=== PATIENT | female | born 1940 | race Caucasian/White ===

== ENCOUNTER 2016-12-30 07:04 | Inpatient (IN) | payer OTHER ==
[~2016-12-30] VITALS: Ht 152.4 cm; Wt 61.8 kg
[~2016-12-30 07:04] MED LIST: ALEVE220 MG PO; AMLODIPINE BESY10 MG PO; CARDIZEM CD,CA180 MG PO; CLONAZEPAM0.5 MG PO; CORTISONE INJECTION IM; COUMADIN2.5 MG PO; CYANOCOBALAM1000 MCG PO; CYMBALTA30 MG PO; DOCUSATE SODIU100 MG PO; ENDOCET 5-3251 EACH PO; FAMOTIDINE20 MG PO; FLAGYL500 MG PO; IBUPROFEN400 MG PO; IRON325 M1 PO; KLONOPIN0.5 M1 PO; LISINOPRIL-HCT1 EAC3 PO; LITE COAT ASPI325 M1 PO; LOPRESSOR25 MG PO; LOPRESSOR50 MG PO; METHOTREXATE2.5 MG PO; NICOTINE PATCH1 EAC2 TD; NITROFURANTOIN100 M3 PO; OXYCONTIN10 MG PO; PHENTERMINE H37.5 MG PO; PREDNISONE5 MG PO; THERAGRAN1 TABLET PO; TRAMADOL HCL50 MG PO; VITAMIN D31000 UNIT PO; VITAMIN E400 UNIT PO; WARFARIN SODIUM1 MG PO; WARFARIN SODIUM2 MG PO; [UNRECOGNIZED DRUG - OTHER]
[2016-12-30] MEDS ORDERED: CYCLOBENZAPRINE10 MG PO (07:24)
[2016-12-30] MEDS ORDERED: VITAMIN E400 UNIT PO (07:26)
[2016-12-30 07:40] LABS: HEMATOCRIT 34.4 % (36.0-46.0); MCH 29.5 PG (29.0-34.0); MCV 92.2 FL (83-99); MEAN PLAT.VOLUME 9.6 uM^3 (9.5-12.4); PLATELET COUNT 419 K/uL (156-360); RBC DIS.WIDTH-CV 16.1 % (11.8-14.6); RBC DIS.WIDTH-SD 52.3 % (39-53); RED BLOOD COUNT 3.73 M/uL (3.80-5.20); WHITE BLOOD COUNT 15.4 K/uL (4.1-10.2)
[2016-12-30 07:43] LABS: EOSINOPHIL COUNT 0.3 K/uL (0-0.3); IMMATURE GRANULOCYTE (%) 0.5 % (0.0-0.7); IMMATURE GRANULOCYTE COUNT 0.8 K/uL; LYMPHOCYTE COUNT 0.8 K/uL (1.0-2.8); MONOCYTE (%) 2.5 % (3-12); MONOCYTE COUNT 0.4 K/uL (0-0.8); NEUTROPHIL (%) 89.6 % (45-76); NEUTROPHIL COUNT 13.8 K/uL (1.8-6.4)
[2016-12-30 07:49] LABS: PROTHROMBIN TIME 10.6 (9.2-11.2)
[2016-12-30 08:14] LABS: ANION GAP 9 MEQ/L (2-14); CHLORIDE 106 MEQ/L (99-109); GFR ESTIMATE (CALCULATED) > 59 mL/min/; GLUCOSE 134 mg/dL (70-99); POTASSIUM 4.1 MEQ/L (3.7-5.4); SAMPLE HEMOLYSIS CHECK 0; SAMPLE ICTERIC CHECK 0; SAMPLE LIPEMIA CHECK 0; SODIUM 138 MEQ/L (136-147); TROP-I INTERPRETATION NEGATIVE; TROPONIN-I 0.03 ng/mL (0.0-0.30); UREA NITROGEN (BUN) 14 mg/dL (9-23)
[2016-12-30] MEDS ORDERED: ULTRAM50 MG PO (11:06)
[2016-12-30] MEDS ORDERED: NORVASC10 MG PO (11:07)
[2016-12-30] MEDS ORDERED: AMOXICILLIN500 MG PO (11:08)
[2016-12-30 19:30] VITALS: BP 153/73
[2016-12-31] VITALS: BP 131/60
[2016-12-31 04:00] VITALS: BP 161/72
[2016-12-31 06:19] LABS: HEMATOCRIT 35.2 % (36.0-46.0); MCHC 30.1 G/DL (30.0-36.0); MCV 92.9 FL (83-99); MEAN PLAT.VOLUME 9.6 uM^3 (9.5-12.4); PLATELET COUNT 443 K/uL (156-360); RBC DIS.WIDTH-CV 16.2 % (11.8-14.6); RBC DIS.WIDTH-SD 55.1 % (39-53); RED BLOOD COUNT 3.79 M/uL (3.80-5.20)
[2016-12-31 06:36] LABS: PROTHROMBIN TIME 10.6 (9.2-11.2)
[2016-12-31 06:45] LABS: ALKALINE PHOSPHATASE 103 IU/L (3-129); ANION GAP 8 MEQ/L (2-14); CHLORIDE 105 MEQ/L (99-109); GFR ESTIMATE (CALCULATED) > 59 mL/min/; GLUCOSE 135 mg/dL (70-99); POTASSIUM 4.6 MEQ/L (3.7-5.4); SAMPLE HEMOLYSIS CHECK 0; SAMPLE ICTERIC CHECK 0; SAMPLE LIPEMIA CHECK 0; SODIUM 140 MEQ/L (136-147); TOTAL BILIRUBIN 0.4 MG/DL (0.0-1.0)
[2016-12-31 06:46] LABS: EOSINOPHIL (%) 0 % (0-5); IMMATURE GRANULOCYTE (%) 0.4 % (0.0-0.7); LYMPHOCYTE COUNT 0.4 K/uL (1.0-2.8); MONOCYTE COUNT 0.1 K/uL (0-0.8); NEUTROPHIL (%) 94.6 % (45-76); NEUTROPHIL COUNT 10.4 K/uL (1.8-6.4); UREA NITROGEN (BUN) 24 mg/dL (9-23)
[2016-12-31 08:01] VITALS: BP 141/87
[2016-12-31 09:44] LABS: DIGOXIN 1.1 ng/mL (0.8-2.0)
[2016-12-31 12:09] VITALS: BP 161/72
[2016-12-31] MEDS ORDERED: LOPRESSOR100 M1 PO (14:51)
[2016-12-31] MEDS ORDERED: DIGITEK250 MC2 PO (14:52)
[2016-12-31] MEDS ORDERED: CLONAZEPAM0.5 MG PO (14:56)
[2016-12-31] MEDS ORDERED: AMLODIPINE BESY10 MG PO (15:01)
[2016-12-31 15:32] VITALS: BP 162/68
[2016-12-31] MEDS ORDERED: FUROSEMIDE20 MG PO (15:42)
== END 2016-12-31 17:15 | disposition home or self-care (01) | DRG 293 ==
LOC: EME 07:04 → EDOF 09:09 → 4SOUTH 09:09 → EDOF 09:32 → 4SOUTH 19:18
PROVIDERS: Emergency Medicine; Family Medicine
DX: I50.9 Heart failure, unspecified (principal); I48.0 Paroxysmal atrial fibrillation; J44.9 Chronic obstructive pulmonary disease, unspecified; I10 Essential (primary) hypertension; M06.9 Rheumatoid arthritis, unspecified; I35.0 Nonrheumatic aortic (valve) stenosis; I25.10 Atherosclerotic heart disease of native coronary artery without angina pectoris; Z79.01 Long term (current) use of anticoagulants; F17.210 Nicotine dependence, cigarettes, uncomplicated; Z85.72 Personal history of non-Hodgkin lymphomas; Z92.3 Personal history of irradiation
CPT/HCPCS: 71010; 80048; 80053; 80162; 83880; 84443; 84484; 85025; 85610; 93005; 93306; 94640; 99281; 99285; J1160; J1940; J2920; J2930

== ENCOUNTER 2017-03-05 15:11 | Observation (INO) | payer OTHER ==
[~2017-03-05] VITALS: Ht 152.4 cm; Wt 47.7 kg
[~2017-03-05 15:11] MED LIST changes: +AMOXICILLIN500 MG PO; +CYCLOBENZAPRINE10 MG PO; +DIGITEK250 MC2 PO; +FUROSEMIDE20 MG PO; +LOPRESSOR100 M1 PO; +NORVASC10 MG PO; +ULTRAM50 MG PO
[2017-03-05 16:55] LABS: EOSINOPHIL (%) 0.6 % (0-5); EOSINOPHIL COUNT 0.1 K/uL (0-0.3); HEMATOCRIT 35.2 % (36.0-46.0); IMMATURE GRANULOCYTE (%) 0.4 % (0.0-0.7); INSTRUMENT ABS NEUTROPHIL CT 6.4 K/uL; MCH 29.2 PG (29.0-34.0); MCV 94.4 FL (83-99); MEAN PLAT.VOLUME 8.9 uM^3 (9.5-12.4); MONOCYTE (%) 6.7 % (3-12); MONOCYTE COUNT 0.5 K/uL (0-0.8); NEUTROPHIL (%) 79.4 % (45-76); NEUTROPHIL COUNT 6.4 K/uL (1.8-6.4); PLATELET COUNT 463 K/uL (156-360); RBC DIS.WIDTH-CV 16.1 % (11.8-14.6); RBC DIS.WIDTH-SD 56.1 % (39-53); RED BLOOD COUNT 3.73 M/uL (3.80-5.20); WHITE BLOOD COUNT 8.1 K/uL (4.1-10.2)
[2017-03-05 17:03] LABS: CHLORIDE 107 mEq/L (99-109); POTASSIUM 4.5 mEq/L (3.7-5.4); PTT 26.5 (25-32); SODIUM 140 mEq/L (136-147)
[2017-03-05 17:05] LABS: GLUCOSE 92 mg/dL (70-99)
[2017-03-05 17:06] LABS: ANION GAP 7 MEQ/L (2-14)
[2017-03-05 17:09] LABS: GFR ESTIMATE (CALCULATED) > 59 mL/min/
[2017-03-05 17:10] LABS: UREA NITROGEN (BUN) 16 mg/dL (9-23)
[2017-03-05 17:14] LABS: TROP-I INTERPRETATION NEGATIVE; TROPONIN-I 0.15 ng/mL (0.0-0.30)
[2017-03-05] MEDS ORDERED: LASIX20 MG PO (19:25)
[2017-03-05] MEDS ORDERED: KLONOPIN0.5 M1 PO (19:25)
[2017-03-05] MEDS ORDERED: SILVER SULFADIA50 GM TP (19:26)
[2017-03-05] MEDS ORDERED: ZOLPIDEM TARTRA10 MG PO (19:26)
[2017-03-05] MEDS ORDERED: LANSOPRAZOLE30 MG PO (19:27)
[2017-03-05 23:10] VITALS: BP 193/80
[2017-03-06 00:06] VITALS: BP 152/66
[2017-03-06 04:41] VITALS: BP 145/67
[2017-03-06 05:39] LABS: HEMATOCRIT 30.1 % (36.0-46.0); MCH 29.5 PG (29.0-34.0); MCHC 31.2 G/DL (30.0-36.0); MCV 94.4 FL (83-99); PLATELET COUNT 393 K/uL (156-360); RBC DIS.WIDTH-CV 16.1 % (11.8-14.6); RBC DIS.WIDTH-SD 55.6 % (39-53); RED BLOOD COUNT 3.19 M/uL (3.80-5.20); WHITE BLOOD COUNT 6.2 K/uL (4.1-10.2)
[2017-03-06 06:04] LABS: HDL CHOLESTEROL 38 MG/DL (Desirable>=50); LDL CHOLESTEROL 102 mg/dL (Desirable<100); NON-HDL CHOLESTEROL 121 mg/dL (Desirable<160); TOTAL CHOLESTEROL 159 mg/dL (Desirable<200); TRIGLYCERIDES 94 MG/DL (Normal: <150)
[2017-03-06 07:12] LABS: Estimated Average Glucose 120 mg/dL (70-123); HEMOGLOBIN A1c (GLYCOHEMOGLOB) 5.8 % HGB (Below 5.7)
[2017-03-06 08:15] VITALS: BP 176/75
== END 2017-03-06 10:58 | disposition left against medical advice (07) ==
LOC: EME 15:11 → EDOF 21:42 → 5WEST 21:42 → EDOF 21:42 → 5WEST 23:05
PROVIDERS: Emergency Medicine; Hospitalist
DX: G45.9 Transient cerebral ischemic attack, unspecified (principal); H11.32 Conjunctival hemorrhage, left eye; R59.0 Localized enlarged lymph nodes; I51.7 Cardiomegaly; F17.210 Nicotine dependence, cigarettes, uncomplicated; Z96.641 Presence of right artificial hip joint; I48.0 Paroxysmal atrial fibrillation; I35.0 Nonrheumatic aortic (valve) stenosis; I10 Essential (primary) hypertension; M06.9 Rheumatoid arthritis, unspecified; E78.00 Pure hypercholesterolemia, unspecified
CPT/HCPCS: 70450; 70551; 71010; 80048; 80061; 83036; 84484; 85025; 85027; 85610; 85730; 93005; 93880; 99281; 99285; G0378; J1644

== ENCOUNTER 2017-07-21 07:58 | Inpatient (IN) | payer OTHER ==
[~2017-07-21] VITALS: Ht 152.4 cm; Wt 53.0 kg
[~2017-07-21 07:58] MED LIST changes: +LANSOPRAZOLE30 MG PO; +LASIX20 MG PO; +SILVER SULFADIA50 GM TP; +ZOLPIDEM TARTRA10 MG PO
[2017-07-21 08:41] LABS: EOSINOPHIL (%) 0.8 % (0-5); EOSINOPHIL COUNT 0.2 K/uL (0-0.3); HEMATOCRIT 32.9 % (36.0-46.0); IMMATURE GRANULOCYTE (%) 0.5 % (0.0-0.7); IMMATURE GRANULOCYTE COUNT 0.1 K/uL; INSTRUMENT ABS NEUTROPHIL CT 18.3 K/uL; LYMPHOCYTE COUNT 0.7 K/uL (1.0-2.8); MCH 28.6 PG (29.0-34.0); MCHC 30.7 G/DL (30.0-36.0); MCV 93.2 FL (83-99); MEAN PLAT.VOLUME 9.4 uM^3 (9.5-12.4); MONOCYTE (%) 5.3 % (3-12); MONOCYTE COUNT 1.1 K/uL (0-0.8); NEUTROPHIL (%) 89.9 % (45-76); NEUTROPHIL COUNT 18.3 K/uL (1.8-6.4); PLATELET COUNT 433 K/uL (156-360); RBC DIS.WIDTH-CV 16.5 % (11.8-14.6); RBC DIS.WIDTH-SD 56.4 % (39-53); RED BLOOD COUNT 3.53 M/uL (3.80-5.20); WHITE BLOOD COUNT 20.4 K/uL (4.1-10.2)
[2017-07-21 08:50] LABS: PROTHROMBIN TIME 11.3 SEC (10.2-12.9)
[2017-07-21 08:53] LABS: PTT 24.3 SEC (25-37)
[2017-07-21 09:07] LABS: ANION GAP 11 MEQ/L (2-14); CHLORIDE 107 MEQ/L (99-109); POTASSIUM 5.2 MEQ/L (3.7-5.4); SAMPLE HEMOLYSIS CHECK 0; SAMPLE ICTERIC CHECK 0; SAMPLE LIPEMIA CHECK 0; SODIUM 141 MEQ/L (136-147)
[2017-07-21 09:12] LABS: GFR ESTIMATE (CALCULATED) > 59 mL/min/; GLUCOSE 144 mg/dL (70-99); UREA NITROGEN (BUN) 18 mg/dL (9-23)
[2017-07-21 09:16] LABS: TROP-I INTERPRETATION NEGATIVE; TROPONIN-I 0.04 ng/mL (0.0-0.30)
[2017-07-21] MEDS ORDERED: DIGOX250 MCG PO (10:25)
[2017-07-21] MEDS ORDERED: ADIPEX-P37.5 MG PO (10:31)
[2017-07-21 14:54] VITALS: BP 160/70
[2017-07-21 19:31] VITALS: BP 167/72
[2017-07-21 23:03] VITALS: BP 163/67
[2017-07-22 03:00] VITALS: BP 185/82
[2017-07-22 06:03] LABS: HEMATOCRIT 30.7 % (36.0-46.0); MCH 29.4 PG (29.0-34.0); MCHC 31.6 G/DL (30.0-36.0); MEAN PLAT.VOLUME 9.6 uM^3 (9.5-12.4); PLATELET COUNT 393 K/uL (156-360); RBC DIS.WIDTH-CV 16.5 % (11.8-14.6); RBC DIS.WIDTH-SD 55.7 % (39-53); WHITE BLOOD COUNT 7.8 K/uL (4.1-10.2)
[2017-07-22 06:18] LABS: ALKALINE PHOSPHATASE 105 IU/L (3-129); ANION GAP 8 MEQ/L (2-14); CHLORIDE 103 MEQ/L (99-109); GFR ESTIMATE (CALCULATED) > 59 mL/min/; SAMPLE HEMOLYSIS CHECK 0; SAMPLE ICTERIC CHECK 0; SAMPLE LIPEMIA CHECK 0; SODIUM 143 MEQ/L (136-147); TOTAL BILIRUBIN 0.3 MG/DL (0.0-1.0); UREA NITROGEN (BUN) 20 mg/dL (9-23)
[2017-07-22 06:19] LABS: GLUCOSE 91 mg/dL (70-99)
[2017-07-22 07:30] VITALS: BP 170/74
[2017-07-22 11:56] LABS: TROP-I INTERPRETATION NEGATIVE; TROPONIN-I 0.03 ng/mL (0.0-0.30)
[2017-07-22 16:00] VITALS: BP 183/77
[2017-07-22 19:53] VITALS: BP 176/82
[2017-07-23 00:08] VITALS: BP 146/66
[2017-07-23 06:43] LABS: EOSINOPHIL (%) 2.9 % (0-5); EOSINOPHIL COUNT 0.2 K/uL (0-0.3); HEMATOCRIT 31.4 % (36.0-46.0); IMMATURE GRANULOCYTE (%) 0.3 % (0.0-0.7); INSTRUMENT ABS NEUTROPHIL CT 5.5 K/uL; LYMPHOCYTE COUNT 1.3 K/uL (1.0-2.8); MCH 29.6 PG (29.0-34.0); MCHC 32.2 G/DL (30.0-36.0); MCV 92.1 FL (83-99); MEAN PLAT.VOLUME 9.4 uM^3 (9.5-12.4); MONOCYTE (%) 10.5 % (3-12); MONOCYTE COUNT 0.8 K/uL (0-0.8); NEUTROPHIL COUNT 5.5 K/uL (1.8-6.4); PLATELET COUNT 405 K/uL (156-360); RBC DIS.WIDTH-CV 16.3 % (11.8-14.6); RBC DIS.WIDTH-SD 54.9 % (39-53); RED BLOOD COUNT 3.41 M/uL (3.80-5.20); WHITE BLOOD COUNT 7.9 K/uL (4.1-10.2)
[2017-07-23 07:11] LABS: ALKALINE PHOSPHATASE 90 IU/L (3-129); ANION GAP 8 MEQ/L (2-14); CHLORIDE 103 MEQ/L (99-109); GFR ESTIMATE (CALCULATED) > 59 mL/min/; GLUCOSE 82 mg/dL (70-99); POTASSIUM 4.2 MEQ/L (3.7-5.4); SAMPLE HEMOLYSIS CHECK 0; SAMPLE ICTERIC CHECK 0; SAMPLE LIPEMIA CHECK 0; SODIUM 142 MEQ/L (136-147); TOTAL BILIRUBIN 0.3 MG/DL (0.0-1.0); UREA NITROGEN (BUN) 23 mg/dL (9-23)
[2017-07-23 08:00] VITALS: BP 188/80
[2017-07-23 12:00] VITALS: BP 145/65
[2017-07-23 16:12] VITALS: BP 145/65
[2017-07-23 19:06] VITALS: BP 138/62
[2017-07-23 23:08] VITALS: BP 132/60
[2017-07-24 03:33] VITALS: BP 135/63
[2017-07-24 06:32] LABS: EOSINOPHIL (%) 2.9 % (0-5); EOSINOPHIL COUNT 0.2 K/uL (0-0.3); HEMATOCRIT 33.5 % (36.0-46.0); IMMATURE GRANULOCYTE (%) 0.3 % (0.0-0.7); INSTRUMENT ABS NEUTROPHIL CT 5.3 K/uL; LYMPHOCYTE COUNT 1.1 K/uL (1.0-2.8); MCH 28.9 PG (29.0-34.0); MCHC 31.6 G/DL (30.0-36.0); MCV 91.3 FL (83-99); MEAN PLAT.VOLUME 8.9 uM^3 (9.5-12.4); MONOCYTE (%) 11.5 % (3-12); MONOCYTE COUNT 0.9 K/uL (0-0.8); NEUTROPHIL (%) 70.1 % (45-76); NEUTROPHIL COUNT 5.3 K/uL (1.8-6.4); PLATELET COUNT 446 K/uL (156-360); RBC DIS.WIDTH-CV 16.1 % (11.8-14.6); RBC DIS.WIDTH-SD 54.2 % (39-53); RED BLOOD COUNT 3.67 M/uL (3.80-5.20); WHITE BLOOD COUNT 7.6 K/uL (4.1-10.2)
[2017-07-24 07:01] LABS: ALKALINE PHOSPHATASE 96 IU/L (3-129); ANION GAP 11 MEQ/L (2-14); CHLORIDE 100 MEQ/L (99-109); GFR ESTIMATE (CALCULATED) > 59 mL/min/; GLUCOSE 82 mg/dL (70-99); POTASSIUM 4.4 MEQ/L (3.7-5.4); SAMPLE HEMOLYSIS CHECK 0; SAMPLE ICTERIC CHECK 0; SAMPLE LIPEMIA CHECK 0; SODIUM 139 MEQ/L (136-147); UREA NITROGEN (BUN) 23 mg/dL (9-23)
[2017-07-24 07:02] LABS: TOTAL BILIRUBIN 0.4 MG/DL (0.0-1.0)
[2017-07-24 07:43] VITALS: BP 144/67
[2017-07-24 12:16] LABS: PROTHROMBIN TIME 11.2 SEC (10.2-12.9)
[2017-07-24 15:47] VITALS: BP 131/61
[2017-07-24 21:06] VITALS: BP 116/53
[2017-07-24 23:37] VITALS: BP 115/53
[2017-07-25 06:43] LABS: PROTHROMBIN TIME 11.1 SEC (10.2-12.9)
[2017-07-25 07:25] VITALS: BP 143/84
[2017-07-25] MEDS ORDERED: COUMADIN1 MG PO (07:52)
[2017-07-25] MEDS ORDERED: LOPRESSOR25 MG PO (07:52)
[2017-07-25] MEDS ORDERED: HYDROCHLOROTHIA25 MG PO (07:52)
[2017-07-25] MEDS ORDERED: ADIPEX-P37.5 MG PO (07:52)
[2017-07-25] MEDS ORDERED: VALSARTAN160 MG PO (07:52)
== END 2017-07-25 10:15 | disposition home or self-care (01) | DRG 190 ==
LOC: EME 07:58 → EDOF 09:48 → 5EAST 09:48 → ENRESERV 09:56 → 5EAST 12:41 → ENPENDDIS 07-25 → 5EAST 07-25 10:15
PROVIDERS: Emergency Medicine; Internal Medicine Cardiovascular Disease; Nurse Practitioner Adult Health; Pediatrics
PROC: 0DB68ZX Excision of Stomach, Via Natural or Artificial Opening Endoscopic, Diagnostic (ICD-10-PCS; principal; 2017-07-24)
DX: J44.0 Chronic obstructive pulmonary disease with (acute) lower respiratory infection (principal); J12.9 Viral pneumonia, unspecified; I50.32 Chronic diastolic (congestive) heart failure; J90 Pleural effusion, not elsewhere classified; C85.90 Non-Hodgkin lymphoma, unspecified, unspecified site; I27.82 Chronic pulmonary embolism; I44.2 Atrioventricular block, complete; Z96.643 Presence of artificial hip joint, bilateral; M19.90 Unspecified osteoarthritis, unspecified site; I11.0 Hypertensive heart disease with heart failure; I48.0 Paroxysmal atrial fibrillation; M06.9 Rheumatoid arthritis, unspecified; I35.0 Nonrheumatic aortic (valve) stenosis; D64.9 Anemia, unspecified; F17.210 Nicotine dependence, cigarettes, uncomplicated; F41.9 Anxiety disorder, unspecified; G47.00 Insomnia, unspecified; Z66 Do not resuscitate; I25.10 Atherosclerotic heart disease of native coronary artery without angina pectoris; R23.3 Spontaneous ecchymoses; I27.2 Other secondary pulmonary hypertension; I49.5 Sick sinus syndrome; K21.9 Gastro-esophageal reflux disease without esophagitis; K25.9 Gastric ulcer, unspecified as acute or chronic, without hemorrhage or perforation; Q27.33 Arteriovenous malformation of digestive system vessel; Z87.11 Personal history of peptic ulcer disease; Z79.82 Long term (current) use of aspirin; Z79.52 Long term (current) use of systemic steroids; Z79.01 Long term (current) use of anticoagulants
CPT/HCPCS: 71010; 71275; 80048; 80053; 83880; 84484; 85025; 85027; 85379; 85610; 85730; 87040; 88305; 88342 TC; 93005; 93306; 93970; 94640; 94640 76; 94799; 99202; 99281; 99285; J0456; J0696; J1100; J1650; J1940; J2250; J3010; J7050; J7512

== ENCOUNTER 2017-10-03 09:29 | Inpatient (IN) | payer OTHER ==
[2017-10-03] VITALS (11 sets, daily range): BP systolic 121–162; BP diastolic 56–81
[~2017-10-03] VITALS: Ht 152.4 cm; Wt 49.6 kg
[~2017-10-03 09:29] MED LIST changes: +ADIPEX-P37.5 MG PO; +COUMADIN1 MG PO; +DIGOX250 MCG PO; +HYDROCHLOROTHIA25 MG PO; +VALSARTAN160 MG PO
[2017-10-03 10:39] LABS: PTT 54.3 SEC (25-37)
[2017-10-03 10:44] LABS: PROTHROMBIN TIME 68.1 SEC (10.2-12.9)
[2017-10-03 10:57] LABS: ANION GAP 8 MEQ/L (2-14); CHLORIDE 106 MEQ/L (99-109); POTASSIUM 3.9 MEQ/L (3.7-5.4); SAMPLE HEMOLYSIS CHECK 0; SAMPLE ICTERIC CHECK 0; SAMPLE LIPEMIA CHECK 0; SODIUM 141 MEQ/L (136-147); TOTAL BILIRUBIN 0.2 MG/DL (0.0-1.0)
[2017-10-03 11:03] LABS: ALKALINE PHOSPHATASE 70 IU/L (3-129); GFR ESTIMATE (CALCULATED) > 59 mL/min/; GLUCOSE 97 mg/dL (70-99); UREA NITROGEN (BUN) 28 mg/dL (9-23)
[2017-10-03] MEDS ORDERED: LASIX20 MG PO (13:44)
[2017-10-03] MEDS ORDERED: FLEXERIL10 MG PO (13:46)
[2017-10-03] MEDS ORDERED: WARFARIN SODIUM4 MG PO (13:47)
[2017-10-03] MEDS ORDERED: DIGOXIN250 MCG PO (13:47)
[2017-10-04] VITALS (8 sets, daily range): BP systolic 154–196; BP diastolic 70–95
[2017-10-04 06:25] LABS: EOSINOPHIL (%) 2.4 % (0-5); EOSINOPHIL COUNT 0.2 K/uL (0-0.3); HEMATOCRIT 25.1 % (36.0-46.0); IMMATURE GRANULOCYTE (%) 0.4 % (0.0-0.7); INSTRUMENT ABS NEUTROPHIL CT 6.6 K/uL; MCH 26.7 PG (29.0-34.0); MCHC 31.9 G/DL (30.0-36.0); MCV 83.7 FL (83-99); MEAN PLAT.VOLUME 8.7 uM^3 (9.5-12.4); MONOCYTE (%) 11.9 % (3-12); MONOCYTE COUNT 1.1 K/uL (0-0.8); NEUTROPHIL (%) 74.2 % (45-76); NEUTROPHIL COUNT 6.6 K/uL (1.8-6.4); PLATELET COUNT 510 K/uL (156-360); RBC DIS.WIDTH-CV 14.9 % (11.8-14.6); RBC DIS.WIDTH-SD 45.1 % (39-53); WHITE BLOOD COUNT 8.9 K/uL (4.1-10.2)
[2017-10-04 06:48] LABS: ALKALINE PHOSPHATASE 63 IU/L (3-129); ANION GAP 6 MEQ/L (2-14); CHLORIDE 107 MEQ/L (99-109); GFR ESTIMATE (CALCULATED) > 59 mL/min/; GLUCOSE 93 mg/dL (70-99); POTASSIUM 4.2 MEQ/L (3.7-5.4); SAMPLE HEMOLYSIS CHECK 1; SAMPLE ICTERIC CHECK 0; SAMPLE LIPEMIA CHECK 0; SODIUM 138 MEQ/L (136-147); UREA NITROGEN (BUN) 17 mg/dL (9-23)
[2017-10-04 06:49] LABS: TOTAL BILIRUBIN 0.4 MG/DL (0.0-1.0)
[2017-10-04 07:52] LABS: POTASSIUM 3.9 MEQ/L (3.7-5.4)
[2017-10-04 07:57] LABS: NO-CHARGE AST (GOT) 12 IU/L (15-37)
[2017-10-04 08:05] LABS: INTER. NORMALIZED RATIO 1.2; PROTHROMBIN TIME 13.7 SEC (10.2-12.9)
[2017-10-05 03:39] VITALS: BP 188/79
[2017-10-05 07:48] LABS: HEMATOCRIT 28.5 % (36.0-46.0); MCH 26.9 PG (29.0-34.0); MCHC 31.9 G/DL (30.0-36.0); MCV 84.3 FL (83-99); MEAN PLAT.VOLUME 8.5 uM^3 (9.5-12.4); PLATELET COUNT 493 K/uL (156-360); RBC DIS.WIDTH-CV 15.4 % (11.8-14.6); RBC DIS.WIDTH-SD 46.5 % (39-53); RED BLOOD COUNT 3.38 M/uL (3.80-5.20); WHITE BLOOD COUNT 9.3 K/uL (4.1-10.2)
[2017-10-05 07:58] LABS: INTER. NORMALIZED RATIO 1.1; PROTHROMBIN TIME 12.7 SEC (10.2-12.9)
[2017-10-05 08:19] LABS: ALKALINE PHOSPHATASE 73 IU/L (3-129); ANION GAP 6 MEQ/L (2-14); CHLORIDE 103 MEQ/L (99-109); GFR ESTIMATE (CALCULATED) > 59 mL/min/; GLUCOSE 82 mg/dL (70-99); POTASSIUM 4.2 MEQ/L (3.7-5.4); SAMPLE HEMOLYSIS CHECK 0; SAMPLE ICTERIC CHECK 0; SAMPLE LIPEMIA CHECK 0; SODIUM 136 MEQ/L (136-147); UREA NITROGEN (BUN) 10 mg/dL (9-23)
[2017-10-05 08:20] LABS: TOTAL BILIRUBIN 0.5 MG/DL (0.0-1.0)
[2017-10-05 08:50] VITALS: BP 163/72
[2017-10-05] MEDS ORDERED: VALSARTAN160 MG PO (10:55)
[2017-10-05] MEDS ORDERED: PANTOPRAZOLE SO40 MG PO (10:55)
[2017-10-05] MEDS ORDERED: SERTRALINE HCL50 MG PO (10:55)
[2017-10-05] MEDS ORDERED: HYDROCHLOROTHIA25 MG PO (10:55)
== END 2017-10-05 12:05 | disposition home or self-care (01) | DRG 812 ==
LOC: EME 09:29 → EDOF 11:16 → 2EAST 11:16 → ENRESERV 11:33 → 2EAST 14:07
PROVIDERS: Emergency Medicine; Nurse Practitioner Adult Health; Pediatrics; Physician Assistant
PROC: 30233N1 Transfusion of Nonautologous Red Blood Cells into Peripheral Vein, Percutaneous Approach (ICD-10-PCS; 2017-10-03)
PROC: 0DJ08ZZ Inspection of Upper Intestinal Tract, Via Natural or Artificial Opening Endoscopic (ICD-10-PCS; principal; 2017-10-04)
DX: D50.0 Iron deficiency anemia secondary to blood loss (chronic) (principal); K92.2 Gastrointestinal hemorrhage, unspecified; R79.1 Abnormal coagulation profile; J44.9 Chronic obstructive pulmonary disease, unspecified; I11.0 Hypertensive heart disease with heart failure; E05.90 Thyrotoxicosis, unspecified without thyrotoxic crisis or storm; I48.0 Paroxysmal atrial fibrillation; M48.54XA Collapsed vertebra, not elsewhere classified, thoracic region, initial encounter for fracture; K44.9 Diaphragmatic hernia without obstruction or gangrene; M06.9 Rheumatoid arthritis, unspecified; I35.0 Nonrheumatic aortic (valve) stenosis; K21.9 Gastro-esophageal reflux disease without esophagitis; I50.9 Heart failure, unspecified; M19.90 Unspecified osteoarthritis, unspecified site; F41.9 Anxiety disorder, unspecified; F32.9 Major depressive disorder, single episode, unspecified; F17.200 Nicotine dependence, unspecified, uncomplicated; Z85.72 Personal history of non-Hodgkin lymphomas; Z82.0 Family history of epilepsy and other diseases of the nervous system; Z79.01 Long term (current) use of anticoagulants; Z86.711 Personal history of pulmonary embolism; Z79.52 Long term (current) use of systemic steroids; Z96.643 Presence of artificial hip joint, bilateral; Z92.21 Personal history of antineoplastic chemotherapy; Z92.3 Personal history of irradiation; Z80.1 Family history of malignant neoplasm of trachea, bronchus and lung
CPT/HCPCS: 36415; 71010; 71275; 80053; 82947; 83880; 84999; 85025; 85027; 85610; 85730; 86850; 86900; 86901; 86920; 99281; 99285; C9113; J1940; J3430; J7040; J7050; P9016

== ENCOUNTER 2017-10-17 12:00 | Inpatient (IN) | payer OTHER ==
[~2017-10-17] VITALS: Ht 152.4 cm; Wt 49.7 kg
[~2017-10-17 12:00] MED LIST changes: +DIGOXIN250 MCG PO; +FLEXERIL10 MG PO; +PANTOPRAZOLE SO40 MG PO; +SERTRALINE HCL50 MG PO; +WARFARIN SODIUM4 MG PO
[2017-10-17 14:28] LABS: HEMATOCRIT 26.8 % (36.0-46.0); MCH 26.2 PG (29.0-34.0); MCHC 31.3 G/DL (30.0-36.0); MCV 83.5 FL (83-99); MEAN PLAT.VOLUME 8.8 uM^3 (9.5-12.4); PLATELET COUNT 569 K/uL (156-360); RBC DIS.WIDTH-SD 49.1 % (39-53); RED BLOOD COUNT 3.21 M/uL (3.80-5.20)
[2017-10-17 14:34] LABS: INTER. NORMALIZED RATIO 1.2; PROTHROMBIN TIME 13.5 SEC (10.2-12.9)
[2017-10-17 14:37] LABS: PTT 29.1 SEC (25-37)
[2017-10-17 14:43] LABS: CHLORIDE 99 mEq/L (99-109); POTASSIUM 4.2 mEq/L (3.7-5.4); SODIUM 136 mEq/L (136-147)
[2017-10-17 14:45] LABS: GLUCOSE 137 mg/dL (70-99)
[2017-10-17 14:46] LABS: ANION GAP 10 MEQ/L (2-14)
[2017-10-17 14:47] LABS: TOTAL BILIRUBIN 0.2 mg/dL (0.0-1.0)
[2017-10-17 14:48] LABS: ALKALINE PHOSPHATASE 108 IU/L (3-129)
[2017-10-17 14:49] LABS: GFR ESTIMATE (CALCULATED) > 59 mL/min/
[2017-10-17 14:50] LABS: UREA NITROGEN (BUN) 16 mg/dL (9-23)
[2017-10-17 14:53] LABS: TROP-I INTERPRETATION NEGATIVE; TROPONIN-I 0.03 ng/mL (0.0-0.30)
[2017-10-17] MEDS ORDERED: DIOVAN160 MG PO (17:22)
[2017-10-17 20:32] VITALS: BP 148/67
[2017-10-17 20:34] LABS: DIGOXIN < 0.3 ng/mL (0.8-2.0)
[2017-10-18] VITALS (12 sets, daily range): BP systolic 118–145; BP diastolic 56–85
[2017-10-18 05:30] LABS: HEMATOCRIT 24.4 % (36.0-46.0); MCH 25.8 PG (29.0-34.0); MCHC 30.7 G/DL (30.0-36.0); MCV 83.8 FL (83-99); MEAN PLAT.VOLUME 9.2 uM^3 (9.5-12.4); PLATELET COUNT 558 K/uL (156-360); RBC DIS.WIDTH-CV 16.3 % (11.8-14.6); RBC DIS.WIDTH-SD 50.4 % (39-53); RED BLOOD COUNT 2.91 M/uL (3.80-5.20); WHITE BLOOD COUNT 6.3 K/uL (4.1-10.2)
[2017-10-18 05:59] LABS: ANION GAP 8 MEQ/L (2-14); CHLORIDE 102 MEQ/L (99-109); GFR ESTIMATE (CALCULATED) > 59 mL/min/; POTASSIUM 4.5 MEQ/L (3.7-5.4); SAMPLE HEMOLYSIS CHECK 0; SAMPLE ICTERIC CHECK 0; SAMPLE LIPEMIA CHECK 0; SODIUM 137 MEQ/L (136-147); UREA NITROGEN (BUN) 13 mg/dL (9-23)
[2017-10-18 06:02] LABS: GLUCOSE 100 mg/dL (70-99)
[2017-10-18 08:57] LABS: IMM.RETIC FRACTION 17.5 % (3-19); RETIC HGB EQUIVALENT 24.4 (28-36); RETICULOCYTE COUNT 1.5 % (0.5-1.8)
[2017-10-18 11:04] LABS: IRON < 10 MCG/DL (35-150)
[2017-10-18 11:52] LABS: ADD MIUA? YES; BILIRUBIN NEGATIVE; BLOOD NEGATIVE; COLOR YELLOW ((YELLOW)); GLUCOSE (STRIP) NEGATIVE; KETONES NEGATIVE; LEUKOCYTES NEGATIVE; NITRITE NEGATIVE; PROTEIN (STRIP) NEGATIVE; SPECIFIC GRAVITY 1.016 (1.000-1.030); UROBILINOGEN 0.2 MG/DL (0.2-1.0)
[2017-10-18 11:58] LABS: BACTERIA RARE /HPF; EPITHELIAL CELLS 1+ /HPF; MUCUS TRACE /LPF; RED BLOOD CELLS 0-5 /HPF (0-5); WHITE BLOOD CELLS 0-5 /HPF (0-5)
[2017-10-18 22:46] LABS: HEMATOCRIT 34.9 % (36.0-46.0); MCV 82.9 FL (83-99)
== END 2017-10-18 23:12 | disposition left against medical advice (07) | DRG 556 ==
LOC: EME 12:00 → ENRESERV 19:01 → EDOF 19:01 → 5WEST 19:01 → EDOF 19:01 → ENRESERV 19:20 → 5WEST 20:27
PROVIDERS: Hospitalist; Nurse Practitioner Adult Health; Nurse Practitioner Family
PROC: 30233N1 Transfusion of Nonautologous Red Blood Cells into Peripheral Vein, Percutaneous Approach (ICD-10-PCS; principal; 2017-10-18)
DX: M62.81 Muscle weakness (generalized) (principal); R53.83 Other fatigue; D64.9 Anemia, unspecified; E78.5 Hyperlipidemia, unspecified; F17.210 Nicotine dependence, cigarettes, uncomplicated; I50.9 Heart failure, unspecified; M06.9 Rheumatoid arthritis, unspecified; I11.0 Hypertensive heart disease with heart failure; Z66 Do not resuscitate; I48.0 Paroxysmal atrial fibrillation; Z91.19 Patient's noncompliance with other medical treatment and regimen; E86.0 Dehydration; G47.00 Insomnia, unspecified; R00.0 Tachycardia, unspecified; M19.90 Unspecified osteoarthritis, unspecified site; J98.4 Other disorders of lung; M71.21 Synovial cyst of popliteal space [Baker], right knee; M71.22 Synovial cyst of popliteal space [Baker], left knee; Z85.72 Personal history of non-Hodgkin lymphomas; Z86.73 Personal history of transient ischemic attack (TIA), and cerebral infarction without residual deficits; Z87.11 Personal history of peptic ulcer disease; Z96.643 Presence of artificial hip joint, bilateral; Z90.49 Acquired absence of other specified parts of digestive tract
CPT/HCPCS: 71020; 80048; 80053; 80162; 81003; 82306; 82607; 82746; 83540; 83880; 84443; 84466; 84484; 85014; 85018; 85027; 85045; 85610; 85730; 86850; 86900; 86901; 86920; 87040; 87502; 93005; 93970; 99281; 99285; C9113; G0378; J0696; J1756; J1940; J2060; J7030; J7050; P9016